=== PATIENT | female | born 1980 | race Caucasian/White ===

== ENCOUNTER 2016-07-15 21:20 | Emergency (ER) | payer OTHER ==
[~2016-07-15] VITALS: Ht 162.6 cm; Wt 86.4 kg
[~2016-07-15 21:20] MED LIST: GLU500 PO; IBUP800T28 PO; OXYC-284 PO; PREN1TAB69 PO; PRI20 PO
[2016-07-15 21:23] VITALS: BP 111/76; PULSE 92; RESP 20; O2SAT 98
--- NOTE | 2016-07-15 21:37 | ED.REPORT ---
HPI-Abd Pain F Under 42 Date of Service July 15, 2016 ED Provider: Germán Dacosta MD Patient is a 35 year old female who presents to the ED complaining of vomiting onset 0730 this morning. Associated symptoms include abdominal pain, diarrhea and myalgia (onset 4 hours ago). She denies hematemesis, hematochezia, fever, or any other symptoms. She had pasta last night. Her is also feeling ill. Nursing Notes Stated Complaint: VOMITING,STOMACH PAIN,DIARRHEA Chief Complaint: Female Abdominal Pain Nursing Notes Reviewed: Yes Allergies: Coded Allergies: metoclopramide (Unverified Allergy, Severe, 01/13/12) Scheduled Metformin-Expunged Drug, Do Not Renew! (Metformin-Expunged Drug, Do Not Renew!) 500 Mg Tablet 500 MG PO BID Omeprazole-Expunged Drug, Do Not Renew! (Omeprazole-Expunged Drug, Do Not Renew! ) 20 Mg Capcr 20 MG PO DAILY Vit/Fe Fumarate/Fa-Expunged Drug, Do (-Expunged Drug, Do Not Renew!) 1 Each Tablet 1 EACH PO DAILY Scheduled PRN Ibuprofen (Ibuprofen) 800 Mg Tablet 800 MG PO TID PRN PRN pa Oxycodone HCl/Acetaminophen 5-325 (Percocet 5-325) 1 Each Tablet 1-2 EACH PO Q4 PRN PRN For Pain General Time Seen by MD: 21:31 Chief Complaint Vomiting mild Hx Obtained From: Patient Arrived By: Walk-in Sudden in Onset?: Yes Onset Occurred: 13 - 16 hours ago Past Medical History Past Medical History Denies Past Surgical History Unknown Social History Other Social History: Good social support, Ambulatory Status Independent Review of Systems Constitutional: Denies: Fever GI: Reports: Abdominal pain, Diarrhea, Vomiting, Denies: Hematemesis, Hematochezia Musculoskeletal: Reports: Myalgia Complete sys rev & neg: except as marked. Physical Exam Initial Vital Signs Vital Signs (First) Date Time Temp Pulse Resp B/P Pulse Ox O2 Delivery O2 Flow Rate FiO2 07/15/16 21:23 36.9 92 20 111/76 98 Initial VS: Reviewed Head / Eyes: Atraumatic, Normocephalic Neck: Full range of motion Skin: Warm, Dry Neurologic: Alert, Oriented, Nonfocal Psychiatric: Mood/affect normal, Behavior normal, Normal thought content General/Constitutional: Awake, Alert, Well developed Respiratory / Chest: No respiratory distress Cardiovascular: Peripheral circulation NL Tenderness/Guarding/Rebound: Positive: Tender diffuse No RLQ tenderness Back: Inspection NL Interpretation & Diagnostics Lab Results Interpretation Result Diagram: 07/15/16219907/15/162199 Test 07/15/16 22:00 White Blood Count 12.1th/mm3 (3.8-10.1) Red Blood Count 4.53mil/mm3 (3.90-5.20) Hemoglobin 14.3g/dL (12.0-15.6) Hematocrit 41.1% (35.0-46.0) Mean Corpuscular Volume 90.7fL (81-100) Mean Corpuscular Hemoglobin 31.6pg (27.0-35.0) Mean Corpuscular Hemoglobin Concent 34.8% (32.0-37.0) Red Cell Distribution Width 12.7% (12.3-15.4) Platelet Count 224bil/L (150-400) Neutrophils (%) (Auto) 83.1% (40-74) Lymphocytes (%) (Auto) 9.4% (14-46) Monocytes (%) (Auto) 5.8% (4-12) Eosinophils (%) (Auto) 1.4% (0-5) Basophils (%) (Auto) 0.1% (0-3) Sodium Level 138mEq/L (134-144) Potassium Level 3.6mEq/L (3.5-5.2) Chloride Level 102mEq/L (97-108) Carbon Dioxide Level 20mmol/L (18-29) Blood Urea Nitrogen 7mg/dL (6-20) Creatinine 0.48mg/dL (0.57-1.00) Estimat Glomerular Filtration Rate 213mL/min (>59) Glucose Level 100mg/dL (60-99) Calcium Level 8.8mg/dL (8.5-10.1) Magnesium Level 1.6mg/dL (1.6-2.6) Total Bilirubin 0.5mg/dL (0.0-1.2) Aspartate Amino Transf (AST/SGOT) 14U/L (0-50) Alanine Aminotransferase (ALT/SGPT) 14U/L (0-32) Alkaline Phosphatase 70U/L (25-150) Total Protein 7.1g/dL (6.4-8.4) Albumin 4.3g/dL (3.4-5.0) Lipase 8U/L (13-60) Re-Eval/Medical Decision Med Decision/Clinical Course Med Decision/Clinical Course: 35-year-old female presenting with nausea vomiting diarrhea since earlier today. Has been similar symptoms. Vomiting nonbloody nonbilious. Diarrhea is watery nonbloody. Vital signs stable. Abdominal exam diffuse tenderness no rebound or guarding no right lower quadrant tenderness. Labs are stable. Patient felt much better with IV hydration and antiemetics. Discharged home likely viral gastroenteritis with return precautions if any new or worsening abdominal pain, nausea vomiting, any other new or worsening symptoms. Re-Evaluation/Progress : Time of Eval: 22:54 )( Re-Eval Abdomen: Soft Re-Evaluation/Progress Note: Rechecked pt. She is feeling better. Discussed plan for discharge. Patient understands and agrees with plan. All questions addressed at this time. Counseled Regarding: Diagnosis, Lab results, Need for follow-up, When/why to return to ED Discharge & Departure Primary Impression: Gastroenteritis Disposition: Home Discharge Condition All VS Reviewed: Yes Condition: Improved Additional Instructions: Thank you for entrusting us with your care. Take Zofran as needed for nausea or vomiting. Drink clear fluids. Eat a bland diet and progress as tolerated. Follow up with your primary doctor in the next week if you are not feeling better. Return to the emergency department if you experience worsening abdominal pain, nausea and vomiting not controlled by Zofran, or any other new or worsening symptoms. Referrals: Ronal Huynh MD (PCP) Scribe Attestation Portions of this note were transcribed by Kiko Alicea. I, Dr. Dacosta personally performed the history, physical exam and medical decision-making; I reviewed and confirmed the accuracy of the information in the transcribed note. Signed by: Kiko Alicea 07/15/16, 7727 copies to: Ronal Huynh MD, Ben M MD July 15, 2016 21:37 KIKO ALICEA July 15, 2016 21:41
[2016-07-15] MEDS ORDERED: Ondansetron 2 mg/mL 2 mL Inj IVPUSH ONE (21:45)
[2016-07-15] MEDS ORDERED: 0.9% Sodium Chloride 1,000 ML IV ONE (21:45)
[2016-07-15] MEDS ORDERED: Ondansetron 2 mg/mL 2 mL Inj IVPUSH PRN (21:45)
[2016-07-15 22:23] LABS: BASOPHILS % (AUTO) 0.1 % (0-3); EOSINOPHILS % (AUTO) 1.4 % (0-5); MONOCYTES % (AUTO) 5.8 % (4-12); Mean Corpuscular Hemoglobin 31.6 pg (27.0-35.0); Mean Corpuscular Volume 90.7 fL (81-100); NEUTROPHILS % (AUTO) 83.1 % (40-74); Platelet Count 224 bil/L (150-400)
[2016-07-15 22:47] LABS: Magnesium 1.6 mg/dL (1.6-2.6)
[2016-07-15] MEDS ORDERED: _Ondansetron ODT 4 mg Tablet PO PRN (22:55)
[2016-07-15 23:31] VITALS: BP 111/76; PULSE 92; RESP 20; O2SAT 98
== END 2016-07-15 23:41 | disposition home or self-care (01) ==
LOC: SED 21:20
DX: K52.9 Noninfective gastroenteritis and colitis, unspecified (principal); Z88.8 Allergy status to other drugs, medicaments and biological substances
CPT/HCPCS: 36415; 80053; 81002; 81025; 83690; 83735; 85025; 96361; 96374; 96375; 99284; J2270; J2405; J7030